=== PATIENT | female | born 1970 | race Caucasian/White ===

== ENCOUNTER 2016-09-13 20:04 | Emergency (ER) | payer OTHER ==
[~2016-09-13] VITALS: Ht 154.9 cm; Wt 117.9 kg
[~2016-09-13 20:04] MED LIST: ATORVASTATIN CA80 M1 PO; CATAFLAM50 MG PO; CLINDAMYCIN HC300 MG PO; CYCLOBENZAPRINE10 MG PO; DARVOCET N 1001 TAB PO; DAYPRO600 M1 PO; FLAGYL500 MG PO; FLEXERIL10 MG PO; FLEXERIL5 MG PO; FLOMAX0.4 MG PO; FLONASE ALLERG9.9 ML NAS; HYDROCODONE BIT1 T11 PO; KEFLEX500 M1 PO; MEDROL DOSEPAK4 MG PO; MOTRIN800 MG PO; NAPROSYN500 MG PO; NKHM; NKHM PO; NORCO 5-325 TA1 EACH PO; PERCOCET 325 MG1 TA2 PO; PHENERGAN W/ DE30 ML PO; PHENERGAN W/DM120 ML PO; PHENERGAN25 M1 PO; PRAVASTATIN SOD40 MG PO; PREDNICOT10 MG PO; PREDNICOT20 MG PO; PROAIR HFA0.09 MG/AC INH; PROTONIX40 MG PO; ROBAXIN750 MG PO; TRAMADOL HCL50 MG PO; ULTRAM50 MG PO; VICODIN 5/500 505 MG PO; VICODIN ES 7501 TAB PO; ZITHROMAX Z PA250 MG PO; ZITHROMAX250 MG PO; ZOFRAN4 MG PO; ZOVIRAX 5%2 GM T; ZYRTEC10 MG PO
== END 2016-09-13 21:37 | disposition home or self-care (01) ==
LOC: ED 20:04
DX: M79.672 Pain in left foot (principal); E78.5 Hyperlipidemia, unspecified; Z90.49 Acquired absence of other specified parts of digestive tract; Z88.0 Allergy status to penicillin; Z88.2 Allergy status to sulfonamides

== ENCOUNTER 2016-10-31 19:27 | Emergency (ER) | payer OTHER ==
[~2016-10-31] VITALS: Ht 154.9 cm; Wt 117.9 kg
== END 2016-10-31 21:25 | disposition home or self-care (01) ==
LOC: ED 19:27
DX: Z77.098 Contact with and (suspected) exposure to other hazardous, chiefly nonmedicinal, chemicals (principal); E78.5 Hyperlipidemia, unspecified; G40.909 Epilepsy, unspecified, not intractable, without status epilepticus; Z88.2 Allergy status to sulfonamides; Z88.0 Allergy status to penicillin

== ENCOUNTER 2017-08-29 08:45 | Emergency (ER) | payer OTHER ==
[~2017-08-29] VITALS: Ht 154.9 cm; Wt 122.5 kg
[2017-08-29 09:28] LABS: BASO % 0.4 % (0.0-1.0); EOS # 0.2 10*3/uL (0.0-0.4); EOS % 2.4 % (1.0-4.0); HEMATOCRIT 35.4 % (37.0-47.0); HEMOGLOBIN 11.8 g/dl (12.0-16.0); LYMPH # 2.3 10*3/uL (1.3-4.4); LYMPH % 23.5 % (27.0-41.0); MEAN CELL VOLUME 80.8 fl (81.0-99.0); MEAN CORPUSCULAR HGB 26.9 pg (27.0-31.0); MEAN CORPUSCULAR HGB CONC 33.3 g/dl (33.0-37.0); MEAN PLATELET VOLUME 9.7 fl (9.6-12.3); MONO # 0.4 10*3/uL (0.1-1.0); MONO % 4.1 % (3.0-9.0); NEUT # 6.5 10*3/uL (2.3-7.9); NEUT % 67.3 % (47.0-73.0); PLATELET COUNT AUTOMATED 231 10*3/uL (130-400); RED BLOOD COUNT 4.38 10*6/uL (4.10-5.10); RED CELL DISTRI WIDTH 15.8 % (0-14.5); WHITE BLOOD COUNT 9.7 10*3/uL (4.8-10.8)
[2017-08-29 09:38] LABS: ACT PARTIAL THROMBO TIME 24.4 SECONDS (20.8-31.5); INTERNATIONAL NORM RATIO 0.9 (2.0-3.5)
[2017-08-29 09:48] LABS: ALBUMIN 3.2 gm/dl (3.1-4.5); BUN 13 mg/dl (7-24); CHLORIDE 104 mmol/L (98-107); CREATININE 0.69 mg/dL (0.55-1.02); LIPASE 112 U/L (73-393); SGOT/AST 10 IU/L (3-35); SGPT/ALT 26 U/L (12-78); SODIUM 137 mmol/L (136-145); TOTAL PROTEIN 7.5 gm/dL (6.4-8.2)
[2017-08-29 09:49] LABS: ALKALINE PHOSPHATASE 111 U/L (45-117)
[2017-08-29 09:50] LABS: BETA-HCG, QUANT < 1.0 mIU/mL (1-3); TROPONIN I < 0.015 ng/ml (<0.045)
[2017-08-29] MEDS ORDERED: ROBITUSSIN DM 105 ML PO (09:59)
[2017-08-29] MEDS ORDERED: ZITHROMAX250 MG PO (09:59)
[2017-08-29] MEDS ORDERED: PREDNISONE20 M1 PO (09:59)
== END 2017-08-29 10:11 | disposition home or self-care (01) ==
LOC: ED 08:45
PROVIDERS: Emergency Medicine
DX: J20.9 Acute bronchitis, unspecified (principal); Z98.890 Other specified postprocedural states; Z90.49 Acquired absence of other specified parts of digestive tract; Z90.710 Acquired absence of both cervix and uterus; Z88.2 Allergy status to sulfonamides; Z88.0 Allergy status to penicillin

== ENCOUNTER 2017-09-03 18:55 | Emergency (ER) | payer OTHER ==
[~2017-09-03] VITALS: Ht 154.9 cm; Wt 122.5 kg
[~2017-09-03 18:55] MED LIST changes: +PREDNISONE20 M1 PO; +ROBITUSSIN DM 105 ML PO
[2017-09-03 19:55] LABS: BASO % 0.2 % (0.0-1.0); EOS % 0.1 % (1.0-4.0); HEMATOCRIT 33.9 % (37.0-47.0); HEMOGLOBIN 11.2 g/dl (12.0-16.0); LYMPH # 1.7 10*3/uL (1.3-4.4); LYMPH % 12.6 % (27.0-41.0); MEAN CELL VOLUME 81.1 fl (81.0-99.0); MEAN CORPUSCULAR HGB 26.8 pg (27.0-31.0); MEAN PLATELET VOLUME 9.7 fl (9.6-12.3); MONO # 0.3 10*3/uL (0.1-1.0); MONO % 2.5 % (3.0-9.0); NEUT # 10.8 10*3/uL (2.3-7.9); NEUT % 82.6 % (47.0-73.0); PLATELET COUNT AUTOMATED 259 10*3/uL (130-400); RED BLOOD COUNT 4.18 10*6/uL (4.10-5.10); RED CELL DISTRI WIDTH 15.9 % (0-14.5); WHITE BLOOD COUNT 13.1 10*3/uL (4.8-10.8)
[2017-09-03 20:05] LABS: ACT PARTIAL THROMBO TIME 22.6 SECONDS (20.8-31.5); INTERNATIONAL NORM RATIO 0.9 (2.0-3.5)
[2017-09-03 20:12] LABS: ALBUMIN 3.3 gm/dl (3.1-4.5); ALKALINE PHOSPHATASE 101 U/L (45-117); BUN 12 mg/dl (7-24); CHLORIDE 101 mmol/L (98-107); CREATININE 0.75 mg/dL (0.55-1.02); LIPASE 86 U/L (73-393); SGOT/AST 9 IU/L (3-35); SGPT/ALT 25 U/L (12-78); SODIUM 136 mmol/L (136-145); TOTAL PROTEIN 7.5 gm/dL (6.4-8.2)
[2017-09-03 20:13] LABS: TROPONIN I < 0.015 ng/ml (<0.045)
[2017-09-03] MEDS ORDERED: PREDNISONE10 MG PO (21:42)
[2017-09-03] MEDS ORDERED: ALBUTEROL2.5 MG/0.5 INH (21:42)
[2017-09-03] MEDS ORDERED: VIBRAMYCIN100 MG PO (21:42)
== END 2017-09-03 21:47 | disposition home or self-care (01) ==
LOC: ED 18:55
PROVIDERS: Nurse Practitioner Family
DX: J40 Bronchitis, not specified as acute or chronic (principal); E78.5 Hyperlipidemia, unspecified; E66.9 Obesity, unspecified; G40.909 Epilepsy, unspecified, not intractable, without status epilepticus; Z98.890 Other specified postprocedural states; Z90.49 Acquired absence of other specified parts of digestive tract; Z90.710 Acquired absence of both cervix and uterus; Z79.899 Other long term (current) drug therapy; Z88.0 Allergy status to penicillin; Z88.2 Allergy status to sulfonamides

== ENCOUNTER 2019-05-13 12:53 | Emergency (ER) | payer BC, OTHER ==
[~2019-05-13] VITALS: Ht 154.9 cm; Wt 122.5 kg
[~2019-05-13 12:53] MED LIST changes: +ALBUTEROL2.5 MG/0.5 INH; +ASPIRIN CHEWABL81 MG PO; +AVPAK AZITHROM250 MG PO; +EFFIENT10 M1 PO; +IMDUR SA30 MG PO; +LIPITOR80 MG PO; +MUCINEX ER600 MG PO; +PREDNISONE10 MG PO; +RANEXA1000 M1 PO; +TOPROL XL25 MG PO; +VIBRAMYCIN100 MG PO; +VITAMIN D50000 UNIT PO
[2019-05-13] MEDS ORDERED: IBUPROFEN600 MG PO (13:25)
== END 2019-05-13 13:50 | disposition home or self-care (01) ==
LOC: ED 12:53
DX: G56.01 Carpal tunnel syndrome, right upper limb (principal); G40.909 Epilepsy, unspecified, not intractable, without status epilepticus; I25.2 Old myocardial infarction; E78.00 Pure hypercholesterolemia, unspecified; G89.29 Other chronic pain; Z88.0 Allergy status to penicillin; Z88.2 Allergy status to sulfonamides; Z79.2 Long term (current) use of antibiotics; Z79.82 Long term (current) use of aspirin; Z79.899 Other long term (current) drug therapy; Z90.49 Acquired absence of other specified parts of digestive tract